=== PATIENT | female | born 1975 | race Hispanic/Latino ===

== ENCOUNTER 2018-08-06 06:55 | Inpatient (IN) | payer MEDICARE ==
[2018-08-01 15:34] LABS: BASOPHILS % 0.3 % (0.0-1.0); EOSINOPHILS # (AUTO) 0.3 (0.0-0.4); EOSINOPHILS % 2.5 % (0.0-6.0); HEMATOCRIT 35.6 % (34.2-44.1); HEMOGLOBIN 10.7 g/dL (12.0-16.0); LYMPHOCYTES % 16.8 % (18.0-39.1); MEAN CORPUSCULAR HEMOGLOBIN 25.3 pg (28-32); MEAN CORPUSCULAR HGB CONC 30.1 g/dL (31-35); MEAN CORPUSCULAR VOLUME 84.2 fL (81-99); MONOCYTES # (AUTO) 0.4 (0.2-0.8); MONOCYTES % 3.6 % (4.4-11.3); NEUTROPHILS # (AUTO) 8.9 (2.1-6.9); NEUTROPHILS % 76.3 % (38.7-80.0); PLATELET COUNT 314 x10e3/uL (140-360); RED BLOOD COUNT 4.23 x10e6/uL (3.6-5.1); RED CELL DISTRIBUTION WIDTH 15.9 % (11.7-14.4)
[2018-08-01 15:52] LABS: ANION GAP 12.9 mmol/L (8-16); BLOOD UREA NITROGEN 12 mg/dL (7-26); BUN/CREATININE RATIO 16 (6-25); CALCIUM 9.7 mg/dL (8.4-10.2); CARBON DIOXIDE 27 mmol/L (22-29); CHLORIDE 105 mmol/L (98-107); CREATININE, SERUM 0.76 mg/dL (0.57-1.11); EST GLOMERULAR FILTRATION RATE > 60 ML/MIN (60-); GLUCOSE 99 mg/dL (74-118); POTASSIUM 3.9 mmol/L (3.5-5.1); SODIUM 141 mmol/L (136-145)
--- NOTE | 2018-08-01 16:12 | Diagnostic Imaging Report ---
EXAMINATION: CHEST 2 VIEWS INDICATION: Pre-admit. COMPARISON: None FINDINGS: TUBES and LINES: None. LUNGS: Lungs are not well inflated. Lungs are clear. There is no evidence of pneumonia or pulmonary edema. PLEURA: No pleural effusion or pneumothorax. HEART AND MEDIASTINUM: The cardiomediastinal silhouette is unremarkable. BONES AND SOFT TISSUES: No acute osseous abnormality. UPPER ABDOMEN: No free air under the diaphragm. IMPRESSION: No acute radiographic abnormality. Signed by: Dr. Андрей Dwyer MD on 08/01/2018 4:08 PM
[~2018-08-06] VITALS: Ht 149.9 cm; Wt 137.4 kg
[~2018-08-06 06:55] MED LIST: ALBUTEROL0.63 MG/3 INH; FUROSEMIDE40 MG PO; MONTELUKAST SOD10 MG PO; PANTOPRAZOLE SO40 MG PO; RANITIDINE HCL300 M1 PO; VASOTEC10 MG PO
[2018-08-06] MEDS ORDERED: BUPIVACAINE 0.25% 30ML SDV INJ ONE (07:00)
--- OUTSIDE RECORDS SUMMARY | 2018-08-06 07:07 | XMS REPORT ---
Author Author [facility] Address Unknown Phone Unavailable Care Team Providers Care Roll Contour Grinder Name Role Phone Abdi RICHEY Unavailable Unavailable Problems This patient has no known problems. Allergies, Adverse Reactions, Alerts This patient has no known allergies or adverse reactions. Medications This patient has no known medications. Results Test Description Test Time Test Comments Text Results Atomic Results Result Comments CHEST 2 VIEWS 2018-08-01 16:06:00 [place] [address] Patient Name: MICHAEL GOMEZ MR #: [id number] : 1975 Age/Sex: 43/F Req #: [id number] Adm Physician: Ordered by: CLAY RICHEY MD Report #: [id number] Location: OR Room/Bed: Procedure: [id number] DX/CHEST 2 VIEWS Exam Date: Exam Time: REPORT STATUS: Signed EXAMINATION: CHEST 2 VIEWS INDICATION: Pre-admit. COMPARISON: None FINDINGS: TUBES and LINES: None. LUNGS: Lungs are not well inflated. Lungs are clear. There is no evidence of pneumonia or pulmonary edema. PLEURA: No pleural effusion or pneumothorax. HEART AND MEDIASTINUM: The cardiomediastinal silhouette is unremarkable. BONES AND SOFT TISSUES: No acute osseous abnormality. UPPER ABDOMEN: No free air under the diaphragm. IMPRESSION: No acute radiographic abnormality. Signed by: Dr. King Dwyer MD on 08/01/2018 4:08 PM Dictated By: KING DWYER MD [id number] Transcribed By: CHANDANA on 08/01/18 1601 COPY TO: CLAY RICHEY MD
[2018-08-06] MEDS ORDERED: SODIUM CHLORIDE 0.9% 1000ML 1,000 ML IV SCH (08:46)
[2018-08-06] MEDS ORDERED: MORPHINE SULFATE 2 MG/ML SYR 1ML IV PRN (09:00)
[2018-08-06] MEDS ORDERED: HYDRALAZINE HCL 20 MG/ML VIAL ONE (11:12)
[2018-08-06] MEDS ORDERED: FENTANYL CITRATE/PF 100MCG/2 ML INJ ONE ×2 (11:12→18:07)
[2018-08-06] MEDS ORDERED: MORPHINE SULFATE INJ 4 MG/ML INJ 1ML ONE (11:28)
[2018-08-06] MEDS ORDERED: HYDROMORPHONE 2MG/ML 2 MG/ML ML ONE (11:48)
[2018-08-06] MEDS ORDERED: ONDANSETRON HCL INJ 2MG/ML 2ML 2 MG/ML VIAL ONE ×2 (11:56→17:43)
[2018-08-06] MEDS ORDERED: PROMETHAZINE HCL (IM) 25 MG/ML VIAL ONE (12:11)
[2018-08-06] MEDS ORDERED: MEPERIDINE HCL INJ 25 MG/ML VIAL ONE (12:16)
--- NOTE | 2018-08-06 12:37 | NUR ---
RECEIVED REPORT FROM JUNE IN PACU AWAITING FOR PT TO ARRIVE TO FLOOR
[2018-08-06 12:52] VITALS: BP 141/77
--- NOTE | 2018-08-06 12:52 | NUR ---
pt arrived to floor in bariatric bed pt is aa0x2 very drowsy from sx. responds to verbal stimuli but goes right back to sleep pt is on fluids with ns to the left hand 20 g . site is clean and dry abd trochar sites are clean and dry. no drainage noted pt is npo per orders pt is on nc 3l sating 94% will continue to monitor pt closely, side railsx3, bed wheels locked, call light is within easy reach\ instructed to call for assistance if needed
[2018-08-06 13:08] VITALS: BP 141/77
[2018-08-06] MEDS ORDERED: MORPHINE SULFATE INJ 4 MG/ML INJ 1ML IV PRN (13:45)
[2018-08-06] MEDS ORDERED: KETOROLAC TROMETHAMINE 30 MG/ML VIAL IV PRN (14:30)
[2018-08-06] MEDS ORDERED: PROMETHAZINE 12.5MG/ NACL 0.9% 12.5 MG/50 ML BAG IV PRN (14:30)
[2018-08-06] MEDS ORDERED: KETOROLAC TROMETHAMINE 30 MG/ML VIAL IM PRN (14:30)
[2018-08-06] MEDS: ONDANSETRON HCL INJ 2MG/ML 2ML 2 MG/ML VIAL IV PRN (14:37)
--- NOTE | 2018-08-06 15:18 | History and Physical ---
CHIEF COMPLAINT: "Underwent weight loss surgery today." HISTORY OF PRESENT ILLNESS: This 43-year-old woman, who has a history of extreme obesity, BMI of 51, complicating underlying hypertension, diastolic heart failure, and sleep apnea. Today, the patient underwent laparoscopic vertical sleeve gastrectomy that was performed by her bariatric surgeon, Dr. Jayson Mallory. The patient states at this time she is experiencing intense pain as well as nausea. The patient's blood work done on August 01, 2018, was found to have a potassium 3.9. BUN and creatinine were 12 and 0.76 respectively. The patient's sodium was 141. The patient's white blood cell count was 11,600 with 76% segmenters. Hemoglobin was 10.7 g/dL. The patient did undergo checks x-ray on August 01, 2018, which did not reveal any acute radiographic abnormality. REVIEW OF SYSTEMS: GENERAL: Weight is stable. No fever or chills. HEENT: No headaches. No visual changes. CARDIOVASCULAR/RESPIRATORY: Denies any chest pain, shortness of breath, or cough. GASTROINTESTINAL: Complains of intense abdominal pain as well as nausea. She is also having dry heaving. GENITOURINARY: Goodson catheter is in place. NEUROMUSCULAR: Denies any limb weakness or numbness. PAST MEDICAL HISTORY: 1. Extreme obesity, BMI 51. 2. Chronic diastolic congestive heart failure. 3. Hypertensive disease. 4. Obstructive sleep apnea. 5. Gastroesophageal reflux disease. FAMILY HISTORY: Both of the patient's maternal grandparents had coronary artery disease. ALLERGIES: 1. TOPICAL IODINE. 2. CODEINE. 3. IBUPROFEN. 4. TRAMADOL. HOME MEDICATIONS: 1. Albuterol nebulized treatments 4 times daily as needed for short of breath, wheezing. 2. Enalapril 10 mg b.i.d. 3. Furosemide 40 mg b.i.d. 4. Singulair 10 mg daily. 5. Pantoprazole 40 mg daily. 6. Ranitidine 300 mg b.i.d. PAST SURGICAL HISTORY: 1. Laparoscopic vertical sleeve gastrectomy today. 2. -section five times. SOCIAL HISTORY: This woman is single. She is unemployed, but she is receiving disability benefits. The patient states she is disabled because of her congestive heart failure and sleep apnea. The patient denies any tobacco or alcohol use. PHYSICAL EXAMINATION: GENERAL: She is somnolent, but arousable. She is in obvious distress due to pain and nausea. Her teenage daughter and mother at bedside. VITAL SIGNS: Blood pressure is 190/100, pulse is 98, respiratory rate 22, oxygen saturation 94% on 4 L oxygen via nasal cannula, temperature 97.2, height is 4 feet 11 inches, weight is 303 pounds, BMI 61. INTEGUMENT: Skin is warm and dry. No pallor, juandice or diaphoresis. The patient has numerous tattoos. HEENT: Anicteric sclerae. Moist mucous membrane. NECK: Supple. No evidence of jugular venous distention. It was difficult to assess because of the patient's body habitus. CARDIOVASCULAR: Distant heart sounds. Tachycardic rate regular and rhythm. LUNGS: No rales, no rhonchi or wheezes. ABDOMEN: Obese. Her laparoscopic incisions are currently dressed. No bowel sounds are auscultated. EXTREMITIES: No obvious edema in lower extremities, but she is currently wearing sequential compression devices. NEUROLOGIC: No gross focal deficits appreciated. DIAGNOSES: 1. Status post laparoscopic vertical sleeve gastrectomy. 2. Extreme obesity, BMI of 51. 3. Complicating underlying hypertension, congestive heart failure, and sleep apnea. 4. Obstructive sleep apnea. 5. Chronic diastolic congestive heart failure. 6. Hypertensive heart disease. PLAN: 1. We will stop intravenous fluids since the patient has congestive heart failure. 2. Follow renal function and electrolytes. 3. Order CPAP, the patient use at night for sleep apnea. 4. Encourage incentive spirometer use to be used every hour while awake to help prevent atelectasis. 5. Pain control. 6. Antiemetics. 7. Enoxaparin. I would like to thank, Dr. Mallory for involving me in the care of this patient. I spent 45 minutes in the care of this patient. MD DERRICK Starkey/AGGIE /[id number] KALE
[2018-08-06] MEDS: SCOPOLAMINE 1.5 MG PATCH TOP SCH (15:25)
[2018-08-06] MEDS ORDERED: HYDROMORPHONE 1MG/1ML INJ IV PRN (15:30)
[2018-08-06] MEDS: HYDROMORPHONE 2MG/ML 2 MG/ML ML IV PRN ×2 (16:11→20:11)
[2018-08-06] MEDS: FUROSEMIDE 40 MG TAB PO SCH (16:19)
[2018-08-06 16:20] VITALS: BP 148/86
[2018-08-06] MEDS: ENALAPRIL MALEATE 10 MG TAB PO SCH ×2 (16:20→21:10)
[2018-08-06] MEDS: FAMOTIDINE 20 MG TAB PO SCH (16:20)
--- NOTE | 2018-08-06 16:32 | Operative Report ---
DATE OF PROCEDURE: 08/06/2018 SURGEON: Jayson Mallory MD PREOPERATIVE DIAGNOSES: 1. Morbid obesity, BMI 62. 2. Obstructive sleep apnea. 3. Hypertension. 4. Chronic obstructive pulmonary disease. POSTOPERATIVE DIAGNOSES: 1. Morbid obesity, BMI 62. 2. Obstructive sleep apnea. 3. Hypertension. 4. Chronic obstructive pulmonary disease. PREOPERATIVE INDICATIONS: Treat disease, prevent complications related to comorbid conditions of obesity. PROCEDURE: Laparoscopic vertical sleeve gastrectomy. ANESTHESIA: General. AMUSEMENT MACHINE MECHANIC: Hodlen Caldera, surgical instrument maker (needed due to complexity of case). FLUIDS: 550 mL of crystalloid. ESTIMATED BLOOD LOSS: 30 mL. DRAINS: None. COMPLICATIONS: None. SPECIMENS: Partial stomach. GRAFTS: None. FINDIN. Abundant amount of intra abdominal adiposity making exposure and dissection very difficult. 2. Otherwise normal upper GI anatomy. 3. Negative intraoperative EGD leak test. PROCEDURE IN DETAIL: The patient was brought to the operating room and was intubated under general endotracheal anesthesia. She was positioned supine and both arms abducted and all pressure points were appropriately padded. She was sterilely prepped and draped in the usual fashion. A preprocedure pause was performed identifying the patient, use of perioperative antibiotics, intended procedure, and staff surgeon. Primary 5 mm left subcostal incision was made and Veress needle was inserted. Insufflated the abdomen to a pressure of 15 mmHg. Five additional trocars were placed in standard position. Of note, her abdominal wall was extremely thick making very difficult to gain exposure as well as gain retraction due to the increased torque on our instruments. Liver retractor was used to expose the stomach. The greater curvature of the stomach was then mobilized using [place] LigaSure device starting from about 3 cm proximal to the pyloric valve and ending to the left delfin of the diaphragm. An adult-sized endoscope was then placed along the lesser curvature of the stomach to be used as a Bougie. The greater curvature of the stomach was resected with multiple firings of a Endo GI 60 mm Covidien purple load stapling device, which was reinforced with SeamGuard. Once the specimen was removed, it was removed through the right periumbilical port site. The port site was closed with 0-Vicryl suture using Kamran-Mecca technique in a mcsmun-do-fonnc fashion. We then conducted an intraoperative EGD leak test and no leaks were identified. We achieved hemostasis, desufflated the abdomen, removed the liver retractor, and removed the trocars. We closed incision sites with 4-0 Monocryl suture in subcuticular fashion. Dermabond dressings were applied. A 0.25% Bupivacaine was used both at the preperitoneal and incisional sites. The patient tolerated the procedure well. Type of wound is type 2, clean and contaminant. MD CHERRIE Diehl/MODL /[id number]
[2018-08-06] MEDS ORDERED: NON-FORMULARY MEDICATION (Ranitidine Hcl 300 MG) PO SCH (17:00)
[2018-08-06] MEDS ORDERED: ROCURONIUM BROMIDE 10 MG/ML 5ML VIAL ONE (17:43)
[2018-08-06] MEDS ORDERED: SUCCINYLCHOLINE 200 MG/10 ML SYR ONE (17:43)
[2018-08-06] MEDS ORDERED: NEOSTIGMINE 5 MG/5ML SYR ONE (17:43)
[2018-08-06] MEDS ORDERED: PROPOFOL IV EMULSION 10 MG/ML 20 ML VIAL ONE (17:43)
[2018-08-06] MEDS ORDERED: LIDOCAINE HCL 2% LOCAL INJ 5 ML SDV VIAL INJ ONE (17:43)
[2018-08-06] MEDS ORDERED: GLYCOPYRROLATE INJ 1MG/ 5 ML SYR ONE (17:43)
[2018-08-06] MEDS ORDERED: SEVOFLURANE INHAL SOLN 250 ML PEN BTL ONE (17:43)
[2018-08-06] MEDS ORDERED: DEXAMETHASONE SOD PHOS INJ 4 MG/ML VIAL ONE (17:43)
[2018-08-06] MEDS ORDERED: MIDAZOLAM HCL 2 MG/2 ML VIAL ONE (18:07)
[2018-08-06] MEDS: ALBUTEROL SULF 0.083% NEB SOLN 3 ML NEB INH SCH (19:51)
[2018-08-06 20:00] VITALS: BP 175/97
[2018-08-06] MEDS: ENOXAPARIN SOD INJ 40 MG/0.4 ML SYR SC SCH (21:10)
[2018-08-06] MEDS: MONTELUKAST SODIUM 10 MG TAB PO SCH (21:10)
--- NOTE | 2018-08-06 23:50 | NUR ---
PT REFUSED TO AMBULATE THE HALLWAY AT THIS TIME. ASSISTED PT TO TOILET AND BACK TO BED.
[2018-08-07] VITALS (7 sets, daily range): BP systolic 135–176; BP diastolic 64–96
[2018-08-07] MEDS: ONDANSETRON HCL INJ 2MG/ML 2ML 2 MG/ML VIAL IV PRN ×3 (00:39→11:10)
[2018-08-07] MEDS: HYDROMORPHONE 2MG/ML 2 MG/ML ML IV PRN ×4 (01:35→17:40)
[2018-08-07 06:34] LABS: BASOPHILS % 0.2 % (0.0-1.0); HEMATOCRIT 36.3 % (34.2-44.1); HEMOGLOBIN 11.2 g/dL (12.0-16.0); LYMPHOCYTES % 6.3 % (18.0-39.1); MEAN CORPUSCULAR HEMOGLOBIN 25.5 pg (28-32); MEAN CORPUSCULAR HGB CONC 30.9 g/dL (31-35); MEAN CORPUSCULAR VOLUME 82.7 fL (81-99); MONOCYTES # (AUTO) 0.6 (0.2-0.8); MONOCYTES % 3.8 % (4.4-11.3); NEUTROPHILS # (AUTO) 13.6 (2.1-6.9); PLATELET COUNT 389 x10e3/uL (140-360); RED BLOOD COUNT 4.39 x10e6/uL (3.6-5.1); RED CELL DISTRIBUTION WIDTH 15.9 % (11.7-14.4)
[2018-08-07 06:49] LABS: ALANINE AMINOTRANSFERASE 20 IU/L (0-55); ALBUMIN 3.5 g/dL (3.5-5.0); ALBUMIN/GLOBULIN RATIO 0.9 (0.8-2.0); ALKALINE PHOSPHATASE 73 IU/L (40-150); ANION GAP 15.9 mmol/L (8-16); BLOOD UREA NITROGEN 14 mg/dL (7-26); BUN/CREATININE RATIO 18 (6-25); CALCIUM 9.5 mg/dL (8.4-10.2); CARBON DIOXIDE 23 mmol/L (22-29); CHLORIDE 100 mmol/L (98-107); CREATININE, SERUM 0.77 mg/dL (0.57-1.11); EST GLOMERULAR FILTRATION RATE > 60 ML/MIN (60-); GLUCOSE 150 mg/dL (74-118); MAGNESIUM 2.5 MG/DL (1.3-2.1); PHOSPHORUS 2.8 MG/DL (2.3-4.7); POTASSIUM 3.9 mmol/L (3.5-5.1); SODIUM 135 mmol/L (136-145)
[2018-08-07] MEDS ORDERED: HYDROCODONE/APAP 7.5MG-325MG 1 EA TAB PO PRN (07:00)
--- NOTE | 2018-08-07 07:05 | NUR ---
PT RESTING IN BED AA0X3, PT C/O PAIN TO ABD 11/03, RECEIVED PRN DILAUDID ABOUT AN HOUR AGO PT SURGICAL SITE (TROCHAR SITES ON ABD) ARE CLEAN AND DRY AND OPEN TO AIR PT STATES PASSING GAS THIS AM AFTER AMBULATING TO RR PT HAS A RIGHT FA 20 PATENT AND DRY LEFT HAND IV NOT PATENT WILL DC . PT IS ON 4 L NC AND CPAP IS AT BEDSIDE PT WILL BE STARTED ON CLEAR LIQUIDS THIS AM, DIETARY WILL BE SEEING PT TODAY ASWELL WILL CONTINUE TO MONITOR AT THIS TIME, SIDE RAILSX2, BED WHEELS LOCKED, CALL LIGHT IS WITHIN EASY REACH, INSTRUCTED TO CALL FOR ASSISTANCE IF NEEDED
[2018-08-07] MEDS: ALBUTEROL SULF 0.083% NEB SOLN 3 ML NEB INH SCH (07:08)
[2018-08-07] MEDS: ENALAPRIL MALEATE 10 MG TAB PO SCH ×2 (08:59→18:20)
[2018-08-07] MEDS: FUROSEMIDE 40 MG TAB PO SCH ×2 (08:59→18:20)
[2018-08-07] MEDS: PANTOPRAZOLE SOD 40 MG TABEC PO SCH (08:59)
[2018-08-07] MEDS: FAMOTIDINE 20 MG TAB PO SCH ×2 (08:59→18:20)
[2018-08-07] MEDS: ENOXAPARIN SOD INJ 40 MG/0.4 ML SYR SC SCH ×2 (08:59→18:20)
--- NOTE | 2018-08-07 11:12 | NUR ---
Nutrition Screen Note RD Recommendation for Physician: -Continue current diet as ordered -RD provided diet education on 08/07. Plan of Care: RD following, monitoring for tolerance and adequacy, diet education Nutrition reason for involvement: MD Consult bariatric diet progression Primary Diagnose(s): Status post laparoscopic vertical sleeve gastrectomy PMH: 1. Extreme obesity, BMI 51. 2. Chronic diastolic congestive heart failure. 3. Hypertensive disease. 4. Obstructive sleep apnea. 5. Gastroesophageal reflux disease. Ht: 59in Wt: 303lb BMI: 61.2kg/m2 IBW: 95lb RD Assessment: (08/07) Chart reviewed. Labs and meds reviewed. 43yo F, who was admitted for laparoscopic vertical sleeve gastrectomy. Flatus present. Pt walked with PT this AM. Pt appeared to be uncomfortable after surgery. RD consulted for bariatric diet education. Pt was agreeable with plan. Current Diet: bariatric clear liquid Malnutrition Evaluation (08/07/2018) The patient does not meet criteria for a specified degree of malnutrition at this time. Will re-evaluate at follow-up as appropriate. Diet Education Needs Assessment: Diet education indicated, pt was agreeable with plan. Learner(s): pt Time spent: 20minutes Barriers: none Cultural/Language Modifications: No cultural/language modifications noted. Pt speaks Georgian. Readiness: acceptance Method: explanation/ discussion, handout Topics: Bariatric diet (clear liquid, full liquid, pureed) Understanding/Compliance: good compliance expected, needs reinforcement at outpatient bariatric clinic, all questions have been answered Nutrition Care Level: low Signed: Niki Swanson, MS, RD, LD
--- NOTE | 2018-08-07 12:06 | NUR ---
Progress Note S: Complains of some vomiting; but ambulating and doing ok overall O: AF, VSS; General- no acute distress, Abdomen- soft, incisions c/d/i A/P: POD 1, s/p Lap sleeve gastrectomy -Clears, ambulate, cont Lovenox -Plan for dc home tomorrow -Instructed her for full liquid diet, ambulation and use of CPAP when she goes home -f/u with me in 1 week Celia Mallory MD, FACS
--- NOTE | 2018-08-07 12:16 | Diagnostic Imaging Report ---
Examination: Single AP view of the chest. COMPARISON: 08/01/2018 INDICATION: Atelectasis and high white blood cell count DISCUSSION: Lung volumes are low. New linear-crescentic opacity in the left lower lobe. No pleural effusion or pneumothorax. Unchanged cardiomediastinal contour when accounting for differences in technique. No acute osseous abnormality. IMPRESSION: Low lung volumes with linear-crescentic left basal opacity likely representing subsegmental atelectasis. Pneumonia is an additional consideration in the appropriate clinical setting. Signed by: Dr. Toney Olmstead M.D. on 08/07/2018 12:12 PM
--- NOTE | 2018-08-07 12:36 | NUR ---
SPOKE WITH MD TALBERT REGARDING CHEST XRAY RESULTS. NEW ORDERS RECEIVED FOR IV ABX TREATMENT
[2018-08-07] MEDS: CEFEPIME 1GM/NS 0.9% 50 ML 50 ML IV SCH ×2 (13:31→22:35)
[2018-08-07] MEDS: AZITHROMYCIN 500MG/NS 250 ML 250 ML IV SCH (14:05)
--- NOTE | 2018-08-07 14:40 | NUR ---
Visit made by the Spiritual Care Department Pastoral Visitor, Michelle Rollins. PV provided pastoral presence, prayer, hospitality, and supportive listening. Pastoral Visitor informed pt/family of the scope of [employer] and availability. MADDY BELL Radio Repairer Spiritual Care Department O: [phone] Pager: [phone] ([phone] number calling from)
--- NOTE | 2018-08-07 15:00 | NUR ---
Bariatric recliner ordered for this patient today @ 1143 confirmation # [id number]
[2018-08-07] MEDS: PROMETHAZINE 12.5MG/ NACL 0.9% 50 ML IV PRN (16:00)
--- NOTE | 2018-08-07 16:18 | NUR ---
Patient c/o chest pain mainly on the left side. No radiating pain at this time. EKG ordered and noted as normal sinus. vitals stable. 138/70, 78, 20, 98% Call placed to MD for further orders
--- NOTE | 2018-08-07 16:39 | NUR ---
New orders for neb treatments scheduled and labs to be drawn.
[2018-08-07] MEDS: LEVALBUTEROL HCL SOLN NEBU 0.63 MG/3 ML NEB INH SCH ×2 (17:15→19:55)
[2018-08-07] MEDS: IPRATROPIUM BROMIDE 0.02% 2.5 ML NEB NEB SCH ×2 (17:15→19:55)
[2018-08-07] MEDS: MONTELUKAST SODIUM 10 MG TAB PO SCH (22:35)
--- NOTE | 2018-08-07 22:55 | NUR ---
ASSISTED PT IN AMBULATING THE HALLWAY
[2018-08-08] VITALS (9 sets, daily range): BP systolic 99–132; BP diastolic 49–70
[2018-08-08] MEDS: HYDROMORPHONE 2MG/ML 2 MG/ML ML IV PRN ×4 (00:32→22:05)
[2018-08-08] MEDS: PROMETHAZINE 12.5MG/ NACL 0.9% 50 ML IV PRN (03:58)
[2018-08-08 06:39] LABS: BASOPHILS % 0.1 % (0.0-1.0); HEMATOCRIT 32.4 % (34.2-44.1); HEMOGLOBIN 9.9 g/dL (12.0-16.0); LYMPHOCYTES # (AUTO) 1.6 (1.0-3.2); LYMPHOCYTES % 10.8 % (18.0-39.1); MEAN CORPUSCULAR HGB CONC 30.6 g/dL (31-35); MONOCYTES # (AUTO) 1.2 (0.2-0.8); MONOCYTES % 7.9 % (4.4-11.3); NEUTROPHILS # (AUTO) 12.3 (2.1-6.9); NEUTROPHILS % 80.7 % (38.7-80.0); PLATELET COUNT 334 x10e3/uL (140-360); RED BLOOD COUNT 3.81 x10e6/uL (3.6-5.1); RED CELL DISTRIBUTION WIDTH 16.2 % (11.7-14.4)
[2018-08-08 07:26] LABS: ALANINE AMINOTRANSFERASE 17 IU/L (0-55); ALBUMIN 3.2 g/dL (3.5-5.0); ALBUMIN/GLOBULIN RATIO 0.9 (0.8-2.0); ALKALINE PHOSPHATASE 60 IU/L (40-150); ANION GAP 12.9 mmol/L (8-16); BLOOD UREA NITROGEN 14 mg/dL (7-26); BUN/CREATININE RATIO 19 (6-25); CALCIUM 9.2 mg/dL (8.4-10.2); CARBON DIOXIDE 26 mmol/L (22-29); CHLORIDE 105 mmol/L (98-107); CREATININE, SERUM 0.73 mg/dL (0.57-1.11); EST GLOMERULAR FILTRATION RATE > 60 ML/MIN (60-); GLUCOSE 127 mg/dL (74-118); POTASSIUM 3.9 mmol/L (3.5-5.1); SODIUM 140 mmol/L (136-145)
[2018-08-08] MEDS: LEVALBUTEROL HCL SOLN NEBU 0.63 MG/3 ML NEB INH SCH ×3 (07:30→20:00)
[2018-08-08] MEDS: IPRATROPIUM BROMIDE 0.02% 2.5 ML NEB NEB SCH ×3 (07:30→20:00)
--- NOTE | 2018-08-08 07:57 | Discharge Summary ---
ADMITTING DIAGNOSES: 1. Extreme obesity, BMI 61, complicating underlying sleep apnea, congestive heart failure, and hypertension. 2. Hypertensive heart disease. 3. Chronic diastolic congestive heart failure. 4. Obstructive sleep apnea. 5. Chronic obstructive pulmonary disease. DISCHARGE DIAGNOSES: 1. Status post laparoscopic sleeve gastrectomy. 2. Left lower lobe pneumonia. 3. Hypertensive heart disease. 4. Chronic diastolic congestive heart failure. 5. Obstructive sleep apnea. 6. Extreme obesity, BMI 61, complicating underlying congestive heart failure, sleep apnea, and hypertensive heart disease. 7. Chronic obstructive pulmonary disease. 8. Left lower lobe pneumonia, present on admission. HOSPITAL COURSE: This is a 43-year-old woman, who was admitted to [facility] with a diagnosis of extreme obesity, BMI 61 that was complicated underlying sleep apnea, congestive heart failure, and hypertension. The patient underwent laparoscopic vertical sleeve gastrectomy during this hospitalization. The procedure was performed by Dr. Jayson Mallory. The bariatric surgeon stated that the abundant amount of intraabdominal adiposity made the exposure and dissection during the surgery very difficult. During this hospitalization, the patient was also found to have left lower lobe pneumonia. It was felt that this pneumonia was present on admission. In fact, 5 days prior to admission, her white blood cell count was 11,600. On day of discharge, white blood cell count was 12,200 with 72% segmented neutrophils. Chest x-ray done 1 day prior to discharge revealed low lung volumes with left basilar opacity. The patient improved clinically with intravenous antibiotics, namely cefepime and azithromycin. She also used a CPAP machine at night when she slept. The patient had serial cardiac enzymes drawn during this hospitalization because she had chest discomfort. The serial cardiac enzymes as well as electrocardiogram did not reveal any findings consistent with acute myocardial ischemia or infarction. Her brief hospitalization was unremarkable. She stayed one extra day because of persistent nausea and vomiting. CONDITION ON DISCHARGE: Stable. DISCHARGE MEDICATIONS: 1. Levofloxacin 750 mg daily for 7 days. 2. Tylenol No. 3, one pill every 4 hours p.r.n. pain, #30 prescribed, no refills. 3. Zofran 4 mg every 6 hours p.r.n. nausea and vomiting, #20 prescribed, no refills. 4. Albuterol nebulized treatments 4 times a day as needed for shortness of breath and wheezing. 5. Enalapril 10 mg b.i.d. 6. Furosemide 40 mg b.i.d. 7. Singulair 10 mg at bedtime. 8. Pantoprazole 40 mg daily. 9. Ranitidine 300 mg b.i.d. 10. Reglan 10 mg t.i.d. for 7 days scheduled then as needed thereafter. FOLLOWUP INSTRUCTIONS: The patient instructed to follow up with Dr. Mallory in 1 week and with the primary care physician namely Dr. Haque also within a week. MD DERRICK Starkey/AGGIE /[id number] cc: Jayson Mallory MD MTDD
[2018-08-08] MEDS: PANTOPRAZOLE SOD 40 MG TABEC PO SCH (08:15)
[2018-08-08] MEDS: ENALAPRIL MALEATE 10 MG TAB PO SCH ×2 (08:15→17:00)
[2018-08-08] MEDS: ENOXAPARIN SOD INJ 40 MG/0.4 ML SYR SC SCH ×2 (08:15→17:00)
[2018-08-08] MEDS: FUROSEMIDE 40 MG TAB PO SCH ×2 (08:15→17:00)
[2018-08-08] MEDS: ONDANSETRON HCL INJ 2MG/ML 2ML 2 MG/ML VIAL IV PRN ×2 (08:15→20:49)
[2018-08-08] MEDS: CEFEPIME 1GM/NS 0.9% 50 ML 50 ML IV SCH ×2 (08:15→22:04)
[2018-08-08] MEDS: FAMOTIDINE 20 MG TAB PO SCH ×2 (08:15→17:00)
[2018-08-08] MEDS ORDERED: LEVAQUIN500 MG PO (12:31)
[2018-08-08] MEDS ORDERED: NORCO 7.5-3251 EACH PO (12:32)
[2018-08-08] MEDS: AZITHROMYCIN 500MG/NS 250 ML 250 ML IV SCH (13:00)
[2018-08-08] MEDS ORDERED: PROMETHAZINE 25MG/SOD CHL 0.9% 50 ML IV ONE (14:00)
[2018-08-08] MEDS ORDERED: PROMETHAZINE 25MG/ NS 50ML (IV) IV ONE (14:00)
--- NOTE | 2018-08-08 14:18 | NUR ---
CM SPOKE TO PATIENT AT BEDSIDE REGARDING IMM LETTER. IMM LETTER GIVEN WITH EXPLANATION BASED ON ANTICIPATED DISCHARGE DATE. ORIGINAL SIGNED AND PLACED IN CHART; COPY OF ORIGINAL DOCUMENT GIVEN TO PATIENT AT BEDSIDE AND PLACED IN CARE TRANSITION FOLDER. CM CONTACT INFORMATION GIVEN TO PATIENT FOR ANY NEEDS OR CONCERNS. PATIENT WITH NO FURTHER QUESTIONS.
[2018-08-08] MEDS ORDERED: METOCLOPRAMIDE HCL 10 MG/2ML VIAL IV ONE (18:15)
[2018-08-08] MEDS: HYDROCODONE/APAP 7.5MG-325MG 1 EA TAB PO PRN (18:38)
--- NOTE | 2018-08-08 19:12 | NUR ---
WALKING ROUNDS PERFORMED, RECEIVED PT LAYING SEMI FOWLERS IN BED, AAOX3, RR EVEN AND NON-LABORED, O2 BY NC AT 4L. NO S/SX OF DISTRESS NOTED. LEFT PT LAYING SEMI FOWLERS IN BED, BED IN LOW LOCKED POSITION, SIDE RAILS UPX2, CALL LIGHT AND PHONE WITHIN REACH. FAMILY AT BEDSIDE.
[2018-08-08] MEDS: MONTELUKAST SODIUM 10 MG TAB PO SCH (22:04)
--- NOTE | 2018-08-08 22:58 | Diagnostic Imaging Report ---
Examination: Single AP view of the chest. COMPARISON: Portable chest 08/07/2018 INDICATION: Left lower lobe infiltrate versus atelectasis IMPRESSION: 1. Lines and Tubes: None 2. Hypoinflated lungs. No significant interval change in curvilinear opacity in the left lower lung, likely representing subsegmental atelectasis. Mild atelectatic changes are also noted in the right base. No consolidation. 3. Cardiomediastinal silhouette is accentuated by low lung volumes. Central pulmonary venous crowding due to low lung volumes. 4. No acute bony abnormalities. Signed by: Dr. Donato Denis M.D. on 08/08/2018 10:55 PM
[2018-08-08] MEDS: METOCLOPRAMIDE HCL 10 MG/2ML VIAL IV SCH (23:50)
[2018-08-09] VITALS (7 sets, daily range): BP systolic 88–123; BP diastolic 52–61
[2018-08-09] MEDS: IPRATROPIUM BROMIDE 0.02% 2.5 ML NEB NEB SCH ×2 (01:15→13:45)
[2018-08-09] MEDS: LEVALBUTEROL HCL SOLN NEBU 0.63 MG/3 ML NEB INH SCH ×2 (01:15→13:45)
[2018-08-09] MEDS: HYDROMORPHONE 2MG/ML 2 MG/ML ML IV PRN (04:30)
[2018-08-09] MEDS: METOCLOPRAMIDE HCL 10 MG/2ML VIAL IV SCH ×2 (05:35→11:40)
[2018-08-09 06:20] LABS: BASOPHILS % 0.2 % (0.0-1.0); EOSINOPHILS # (AUTO) 0.1 (0.0-0.4); EOSINOPHILS % 0.8 % (0.0-6.0); HEMATOCRIT 33.5 % (34.2-44.1); HEMOGLOBIN 10.1 g/dL (12.0-16.0); LYMPHOCYTES # (AUTO) 2.2 (1.0-3.2); LYMPHOCYTES % 18.2 % (18.0-39.1); MEAN CORPUSCULAR HEMOGLOBIN 25.8 pg (28-32); MEAN CORPUSCULAR HGB CONC 30.1 g/dL (31-35); MEAN CORPUSCULAR VOLUME 85.7 fL (81-99); MONOCYTES # (AUTO) 0.9 (0.2-0.8); MONOCYTES % 7.6 % (4.4-11.3); NEUTROPHILS % 72.9 % (38.7-80.0); PLATELET COUNT 307 x10e3/uL (140-360); RED BLOOD COUNT 3.91 x10e6/uL (3.6-5.1); RED CELL DISTRIBUTION WIDTH 16.1 % (11.7-14.4)
[2018-08-09 07:01] LABS: ALANINE AMINOTRANSFERASE 18 IU/L (0-55); ALBUMIN 3.3 g/dL (3.5-5.0); ALKALINE PHOSPHATASE 64 IU/L (40-150); AMYLASE 26 U/L (25-125); ANION GAP 13.6 mmol/L (8-16); BLOOD UREA NITROGEN 14 mg/dL (7-26); BUN/CREATININE RATIO 18 (6-25); CALCIUM 9.2 mg/dL (8.4-10.2); CARBON DIOXIDE 26 mmol/L (22-29); CHLORIDE 104 mmol/L (98-107); CREATININE, SERUM 0.76 mg/dL (0.57-1.11); EST GLOMERULAR FILTRATION RATE > 60 ML/MIN (60-); GLUCOSE 108 mg/dL (74-118); LIPASE 9 U/L (8-78); POTASSIUM 3.6 mmol/L (3.5-5.1); SODIUM 140 mmol/L (136-145)
[2018-08-09] MEDS ORDERED: SODIUM CHLORIDE 0.9% 250ML 250 ML IV NR (07:47)
[2018-08-09] MEDS: PANTOPRAZOLE SOD 40 MG TABEC PO SCH (08:05)
[2018-08-09] MEDS: FAMOTIDINE 20 MG TAB PO SCH (08:05)
[2018-08-09] MEDS: SCOPOLAMINE 1.5 MG PATCH TOP SCH (08:05)
[2018-08-09] MEDS: ENALAPRIL MALEATE 10 MG TAB PO SCH (08:05)
[2018-08-09] MEDS: ENOXAPARIN SOD INJ 40 MG/0.4 ML SYR SC SCH (08:05)
[2018-08-09] MEDS: FUROSEMIDE 40 MG TAB PO SCH (08:06)
[2018-08-09] MEDS: CEFEPIME 1GM/NS 0.9% 50 ML 50 ML IV SCH (08:29)
[2018-08-09] MEDS: HYDROCODONE/APAP 7.5MG-325MG 1 EA TAB PO PRN (11:40)
--- NOTE | 2018-08-09 12:32 | NUR ---
DISCHARGE INSTRUCTIONS AND PRESCRIPTIONS GIVEN. PT VERBALIZED UNDERSTANDING. PT AWAITING RIDE HOME.
[2018-08-09] MEDS: AZITHROMYCIN 500MG/NS 250 ML 250 ML IV SCH (12:35)
--- NOTE | 2018-08-09 13:00 | NUR ---
LEFT AC IV D/C AT THIS TIME DUE TO C/O PAIN. PT STILL AWAITING RIDE HOME.
== END 2018-08-09 17:42 | disposition home or self-care (01) | DRG 619 ==
LOC: OR 06:55 → PACU V 10:57 → MED/SURG 12:50
PROVIDERS: ADMIT Internal Medicine; ATTEND Internal Medicine
PROC: 0DB64Z3 Excision of Stomach, Percutaneous Endoscopic Approach, Vertical (ICD-10-PCS; principal; 2018-08-06 09:00)
DX: E66.01 Morbid (severe) obesity due to excess calories (principal); J18.9 Pneumonia, unspecified organism; I50.32 Chronic diastolic (congestive) heart failure; J44.0 Chronic obstructive pulmonary disease with (acute) lower respiratory infection; Z68.44 Body mass index [BMI] 60.0-69.9, adult; I11.0 Hypertensive heart disease with heart failure; G47.33 Obstructive sleep apnea (adult) (pediatric); K21.9 Gastro-esophageal reflux disease without esophagitis; K91.0 Vomiting following gastrointestinal surgery; Z82.49 Family history of ischemic heart disease and other diseases of the circulatory system; Z88.5 Allergy status to narcotic agent; Z88.6 Allergy status to analgesic agent; Z91.041 Radiographic dye allergy status
CPT/HCPCS: 36415; 71045; 71046; 80048; 80053; 81025; 82150; 83690; 83735; 83880; 84100; 84484; 85025; 93005; 94640; 94660; J0360; J0456; J0692; J1100; J1650; J2001; J2175; J2250; J2270; J2405; J2550; J2765; J7030; J7050